=== PATIENT | female | born 1945 | race Caucasian/White ===

== ENCOUNTER 2017-12-23 23:02 | Emergency (ER) | payer OTHER ==
[~2017-12-23] VITALS: Ht 160 cm; Wt 51.1 kg
[~2017-12-23 23:02] MED LIST: NYSSO PO
[2017-12-23 23:07] VITALS: TEMP 36.8; Ht 160 cm; Wt 51.1 kg
[2017-12-23] MEDS ORDERED: XYLOCAINE 1%/SOD BICARB 20 ML VIAL INFIL ONE (23:45)
[2017-12-23] MEDS ORDERED: DIPHTHERIA/TETANUS/PERTUSSIS 0.5 ML SYR/VIAL IM. ONE (23:45)
--- NOTE | 2017-12-24 00:07 | EMERGENCY ROOM VISIT NOTE ---
History Report prepared by Lizbeth: Sabi Berg Under the Supervision of: Dr. Hui Choi D.O. First contact with patient: 23:33 Chief Complaint: BITE Stated Complaint: GASH IN RT LEG FROM DOG BITE History of Present Illness The patient is a 72 year old female who presents to the Emergency Room with complaints of an episode of a dog bite to her right leg occurring prior to arrival. The patient states that she has been watching her sons dog. She states that she has been staying at her mother's house since she just got out of the hospital. She reports that she went to take the dog out and it was dark out. She states that he became startled and her leg was in the way. The patient states that the dog's immunizations and vaccines are up to date. The patient's daughter notes that she only wiped it down with warm water. The patient denies having any health problems. She notes that she only takes an Excedrin every morning. She notes that she has not had her Tetanus shot for 40 years. The patient currently rates her pain as a 1/10 in severity. Source of History: patient, family Onset: prior to arrival Position: leg (right) Symptom Intensity: 1/10 Quality: other (dog bite) Timing: other (episode) Review of Systems See HPI for pertinent positives & negatives. A total of 10 systems reviewed and were otherwise negative. Past Medical & Surgical Medical Problems: (1) No Known Active Medical Problems No known medical problems. Family History Sepsis Social History Smoking Status: Never Smoker Alcohol Use: occasionally Marital Status: Housing Status: lives with significant other Current/Historical Medications Scheduled Amoxicillin & Pot Clavulanate (Augmentin 875-125 mg), 875 MG PO BID Scheduled PRN Ylaoqeq-Jhfhetwcciefx-Hmbllgox (Excedrin Extra Strength), 1 TAB PO DIRECTED PRN for Pain Allergies Coded Allergies: No Known Allergies (Unverified , 12/24/17) Physical Exam Vital Signs Date Time Temp Pulse Resp B/P (MAP) Pulse Ox O2 Delivery O2 Flow Rate FiO2 12/24/17 00:55 88 16 156/89 96 Room Air 12/23/17 23:07 36.8 93 18 163/80 97 Room Air Physical Exam Right Calf: Linear laceration that is 5 cm in size. Two puncture wounds noted nearby. Medical Decision & Procedures Medications Administered Medications (Trade) Dose Ordered Sig/Gertrude Route Start Time Stop Time Status Last Admin Dose Admin Diphtheria/ Pertussis/Tetanus Vacc (Adacel Inj) 0.5 ml ONCE ONCE IM. 12/23/17 23:45 12/23/17 23:47 DC 12/24/17 00:05 0.5 ML Oxycodone/ Acetaminophen (Percocet 5/ 325MG Home Pack) 1 homepack UD ONCE PO 12/24/17 01:00 12/24/17 01:01 DC 12/24/17 01:02 1 HOMEPACK Amoxicillin/ Clavulanate Potassium (Augmentin Tab) 875 mg ONE ONCE PO 12/24/17 01:00 12/24/17 01:01 DC 12/24/17 01:02 875 MG Procedure 2345: Ordered Lidocaine HCl 4 ml INFIL, Adacel Inj 0.5 ml IM. 0100: Ordered Augmentin Tab 875 mg PO, Oxycodone/Acetaminophen 1 homepack PO. Location: Posterior right calf Total length: 5 cm Complexity: Simple Verbal consent was obtained after the risks and benefits were explained. The skin was prepped with betadine. The target area was anesthetized with 4 ml of 1 % lidocaine without epinephrine. Copious irrigation was performed using normal saline. The skin was re-prepped with betadine and a sterile field set. The wound was explored for foreign bodies and none found. Examination revealed no injury to deep structures such as tendons, bone, or significant blood vessels. Debridement was not performed. The wound edges were approximated using 6, 4-0 simple interrupted nylon sutures. Hemostasis and excellent approximation was achieved. Antibacterial ointment and a sterile dressing applied. Detailed wound care instructions and signs and symptoms of infection reviewed with the patient. No complications and the patient tolerated the procedure well. ED Course 2337: Past medical records reviewed. The patient was evaluated in room C12B. A complete history and physical exam was performed. 2345: Ordered Lidocaine HCl 4 ml INFIL, Adacel Inj 0.5 ml IM. 0019: I reevaluated the patient and she is doing well. I performed a laceration repair at this time. I discussed findings and results with her. She verbalized agreement of the treatment plan. The patient was discharged home. 0100: Ordered Augmentin Tab 875 mg PO, Oxycodone/Acetaminophen 1 homepack PO. Medical Decision The patient is a 72 year old female who presents to the Emergency Room with complaints of an episode of a dog bite occurring prior to arrival. The dog is up-to-date on its immunizations. The patient suffered a dog bite to her right calf. The wound edges were approximated loosely with 6 interrupted sutures. This was a fairly deep dog bite involving subcutaneous tissues down to the muscle. There were 2 other small puncture wounds above the laceration. I spoke with the patient and her family about the risks of infection. She was given a dose of Augmentin here in the emergency department and will take a 10 day course at home. She was urged to watch for signs of infection. She received a tetanus booster. She was given a Percocet home pack if she were to have severe pain. Otherwise, she can use simply Tylenol or Motrin. She was encouraged to elevate the right leg and apply ice. Medication Reconcilliation Current Medication List: was personally reviewed by me Blood Pressure Screening Patient's blood pressure: Elevated blood pressure Blood pressure disposition: Elevated BP felt to be situational Impression Primary Impression: Dog bite Scribe Attestation The scribe's documentation has been prepared under my direction and personally reviewed by me in its entirety. I confirm that the note above accurately reflects all work, treatment, procedures, and medical decision making performed by me. Departure Information Dispostion Home / Self-Care Prescriptions Amoxicillin & Pot Clavulanate (Augmentin 875-125 mg) 1 Tab Tab 875 MG PO BID, #14 TAB Prov: Hui Choi D.O. 12/24/17 Referrals No Doctor, Assigned (PCP) Forms HOME CARE DOCUMENTATION FORM, IMPORTANT VISIT INFORMATION Patient Instructions My [facility] Additional Instructions Rest with your left leg elevated. Apply ice to minimize swelling Watch for signs of infection. Return to the ER if it appears infected. Wash with soap and water twice a day and change dressing. Percocet - 1 tab. every 4-6 hours for severe pain Augmentin - 1 tab a day every 12 hours Problem Qualifiers Primary Impression: Dog bite Encounter type: initial encounter Qualified Codes: W54.0XXA - Bitten by dog , initial encounter
[2017-12-24] MEDS ORDERED: ASPI-391 PO (00:25)
[2017-12-24 00:55] VITALS: BP 156/89; PULSE 88; O2SAT 96
[2017-12-24] MEDS ORDERED: PERCOCET HOME PACK PO ONE (01:00)
[2017-12-24] MEDS ORDERED: AMOXICILLIN/CLAVULANATE TAB 875 MG TAB PO ONE (01:00)
[2017-12-24] MEDS ORDERED: AMOX875T PO (01:20)
== END 2017-12-24 01:25 | disposition home or self-care (01) ==
LOC: C.EDB 23:03 → C.EDC 12-24 01:25
DX: S80.871A Other superficial bite, right lower leg, initial encounter (principal); W54.0XXA Bitten by dog, initial encounter; Z23 Encounter for immunization